=== PATIENT | male | born 1975 | race Caucasian/White ===

== ENCOUNTER → 2019-02-09 | Outpatient (CLI) | payer BC, SELFPAY ==
--- NOTE | 2019-02-09 15:26 | RAD_ITS ---
STUDY: X-RAY - RIGHT KNEE REASON FOR EXAM: Male, 43 years old. Worsening pain TECHNIQUE: 4 view(s) of the knee. COMPARISON: None. FINDINGS: Normal visualized distal femur. Normal visualized proximal tibia and fibula. Normal proximal tibiofibular articulation. Normal medial femorotibial compartment. Normal lateral femorotibial compartment. Normal patellofemoral articulation. The soft tissue structures are unremarkable. RAD/Knee 4 or More Views IMPRESSION: Normal x-ray examination of the knee. Electronically Signed: Gee Rivera MD at 15:40 EDT , Service support ,
[2019-02-09 17:39] LABS: Anion Gap 5 (5-15); BUN 15 mg/dL (7-18); BUN/Creat Ratio 15.8 RATIO (10-20); Calcium,Total 9.2 mg/dL (8.5-10.1); Chloride 105 mmol/L (98-107); Cholesterol 142 mg/dL (200); Creatinine, Serum 0.95 mg/dL (0.70-1.30); EST Glomerular Filtration Rate 92 mL/min (>60); Est Glom Filt Rate - Afr Amer 111 mL/min (>60); Glucose 79 mg/dL (74-106); High Density Lipoprotein 52 mg/dL; Potassium 3.2 mmol/L (3.5-5.1); Sodium Level 141 mmol/L (136-145); Triglycerides 143 mg/dL; Very Low Density Lipoprotein 29 mg/dL (5-40)
== END | disposition home or self-care (01) ==
PROVIDERS: Family Provider Family Medicine; PCP Family Medicine; Referring Provider Family Medicine; Visit Provider Family Medicine
DX: Z00.00 Encounter for general adult medical examination without abnormal findings (principal); M25.561 Pain in right knee
CPT/HCPCS: 36415; 73564; 80048; 80061

== ENCOUNTER → 2019-03-17 | Outpatient (CLI) | payer BC, SELFPAY ==
[2019-03-17 15:38] LABS: Anion Gap 9 (5-15); BUN 19 mg/dL (7-18); BUN/Creat Ratio 20.1 RATIO (10-20); Calcium,Total 9.2 mg/dL (8.5-10.1); Chloride 107 mmol/L (98-107); Creatinine, Serum 0.94 mg/dL (0.70-1.30); EST Glomerular Filtration Rate 93 mL/min (>60); Est Glom Filt Rate - Afr Amer 112 mL/min (>60); Glucose 88 mg/dL (74-106); Potassium 3.7 mmol/L (3.5-5.1); Sodium Level 145 mmol/L (136-145)
== END | disposition home or self-care (01) ==
LOC: MTLAB 14:19
PROVIDERS: Family Provider Family Medicine; PCP Family Medicine; Referring Provider Family Medicine; Visit Provider Family Medicine
DX: E87.6 Hypokalemia (principal)
CPT/HCPCS: 36415; 80048

== ENCOUNTER → 2019-11-29 15:30 | Outpatient (CLI) | payer BC, SELFPAY ==
--- NOTE | 2019-11-29 | IMM_PTH ---
PATIENT: SPENSER MONTANEZ LOC: [facility] U#:[id number] AGE/SX: 49/M ROOM: RE11/29/[address]: Dr. Renato Acosta MD : 1975 BED: DIS: SPEC #: [id number] RECD: 12/01/19 11:43 STATUS: SOURosa REQ #: [id number] NANCI: 11/29/19 00:[address]: Renato Acosta DEPT: IMMUNOHISTOCHEMISTRY RECD BY: Benita White ENTERED: 12/01/19 11:45 SP TYPE: IMMUNO OTHR DR: Dr. Herbert Cooper MD Tissues: Mouth, NOS Procedures: CK14 (add) CK5-6 (add) CK7 (add) CK8 (add) ALANIS-2 (add) P16 (add) 34BE12 (add) Pankeratin (initial) MELAN-A (initial) P40 (add) S-100 (add) PHYSICIAN [facility] INSTITUTION [address] [address] SPECIMEN INFORMATION: Tissue Source: Floor of mouth Clinical Info: Floor of mouth neoplasm Specimen Number: [id number] CPT code: 71777, 58018 x9 METHODOLOGY: Deparaffinized sections of prefer/formalin-fixed tissue or PAP/DQ stained slides are incubated with monoclonal/polyclonal antibodies/oligonucleotide probes. Localization is made via biotin free immunoperoxidase method. Appropriate controls are performed and reacted as expected. Results on target cell population are indicated in the following table: RESULTS: ANTIBODY / CLONE RESULT AE1-3 (AE1/AE3/PCK26) positive CK7 (OV-TL12/30) positive, focal CK8 (38lpecX60) negative ALANIS-2 (SP21) positive, dim 34BE12 (34BE12) positive Melan A (A103) negative S-100 (4C4.9) negative CK5-6 (D5 & 1684) positive CK14 (LL002) positive P40 (BC28) positive P16 (E6H4) negative These tests were developed and their performance characteristics determined by [facility]. They may not have been cleared or approved by the [place]. Food and Drug Administration. The FDA has determined that such clearance or approval is not necessary. The above immunohistochemical/dualISH markers are ordered and reviewed by the Pathologist. INTERPRETATION: Floor of mouth lesion, biopsy: Invasive squamous cell carcinoma. AM:sophie 12/02/19 Case has been reviewed in consultation with Dr. Mitchell who concurs with the above diagnosis. IDC:SJ
--- NOTE | 2019-11-29 | TISS_PTH ---
PATIENT: SPENSER MONTANEZ LOC: [facility] U#:[id number] AGE/SX: 49/M ROOM: RE11/29/[address]: Dr. Renato Acosta MD : 1975 BED: DIS: SPEC #: [id number] RECD: 11/29/19 15:28 STATUS: AYESHA NISHA #: [id number] NANCI: 11/29/19 00:[address]: Renato Acosta DEPT: SURGICAL PATHOLOGY RECD BY: Gibson Arriaga ENTERED: 11/30/19 08:18 SP TYPE: Tissue Bx MICHELLE DR: Dr. Herbert Cooper MD Tissues: Mouth, NOS Procedures: Surgery Specimen Level IV HEADER OPERATION: Not noted PRE-OP DIAGNOSIS: Floor of mouth neoplasm TISSUE SUBMITTED: Floor of mouth neoplasm MICROSCOPIC DIAGNOSIS Floor of mouth lesion, biopsy: Invasive squamous cell carcinoma. AM:sophie 12/01/19 COMMENT Immunohistochemistry ([id number]) supports the above diagnosis. Case has been reviewed in consultation with Dr. Mitchell who concurs with the above diagnosis. IDC:[place] MICROSCOPIC DESCRIPTION Slides are reviewed. GROSS DESCRIPTION Received is one container labeled with the patient's name and not further designated. The specimen consists of a piece of aguiar mucosal tissue measuring 0.3 x 0.1 x 0.1 cm. The specimen is totally submitted in one cassette. / [place]:sophie 11/30/19 TC:0 CPT: 65132
== END ==
PROVIDERS: PCP Family Medicine; Referring Provider Otolaryngology; Visit Provider Otolaryngology
DX: D49.0 Neoplasm of unspecified behavior of digestive system (principal)
CPT/HCPCS: 88305; 88341; 88342

== ENCOUNTER 2021-12-09 18:36 | Emergency (ER) | payer BC, SELFPAY ==
[2021-12-09 18:37] VITALS: BP 131/88; PULSE 91; RESP 14; TEMP 36.2; O2SAT 100; BMI 19.8
[2021-12-09] MEDS: 0.9% Normal Saline 1,000 ML 999 ML IV ×2 (20:42→22:15)
[2021-12-09 20:56] LABS: Absolute Lymphocyte Count 1.26 X10^3/uL (0.83-4.51); Absolute Neutrophil Count 7.3 X10^3/uL (2.0-7.7); Basophil# 0.05 X10^3/uL; Basophil% 0.5 % (0-1); Eosinophil# 0.39 X10^3/uL; Eosinophils% 4.1 % (0-5); Hematocrit 28.6 % (40-54); Hemoglobin 8.8 g/dL (13.0-16.5); Lymphocyte # 1.26 X10^3/ul (0.83-4.51); Lymphocyte % 13.1 % (19-41); Mean Corp Hgb Conc 30.8 g/dL (32-36); Mean Corpuscular Hgb 25.1 pg (27.0-32.0); Mean Corpuscular Volume 81.5 fL (80-94); Mean Platelet Vol. 8.5 fl (6.2-12.0); Monocyte# 0.58 X10^3/uL; NRBC Flagged by Analyzer 0 % (0-5); Neutrophil # 7.28 X10^3/uL (2.7-7.7); Neutrophil % 75.9 % (47-70); Platelet Count 443 K/mm3 (150-450); RBC Distribution Width SD 47.8 fl (35.1-43.9); Red Blood Count 3.51 M/mm3 (4.6-6.2); White Blood Count 9.6 K/mm3 (4.4-11.0)
[2021-12-09 21:19] LABS: ALB/GLOB Ratio 0.7 RATIO (0.9-2.4); AST(SGOT) 22 U/L (15-37); Alanine Aminotransfer ALT/SGPT 12 U/L (16-61); Albumin, Serum 2.9 g/dL (3.2-5.0); Alkaline Phosphatase 96 U/L (45-117); Anion Gap 3 (5-15); BUN 30 mg/dL (7-18); BUN/Creat Ratio 19.5 RATIO (10-20); Calcium,Total 12.9 mg/dL (8.5-10.1); Chloride 105 mmol/L (98-107); Creatinine, Serum 1.54 mg/dL (0.70-1.30); EST Glomerular Filtration Rate 52 mL/min (>60); Est Glom Filt Rate - Afr Amer 63 mL/min (>60); Estimated Creatinine Clearance 51.53 ml/min; Globulin 4.1 g/dL (2.2-4.2); Glucose 83 mg/dL (74-106); Potassium 2.9 mmol/L (3.5-5.1); Sodium Level 138 mmol/L (136-145)
--- NOTE | 2021-12-09 22:08 | EDS_ITS ---
HPI History of Present Illness Chief Complaint: Abn Labs Narrative Narrative: 46-year-old male presenting with hypercalcemia. He states this has been a problem. 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 Patient currently being seen by Dr. Gilbert oncology from . Patient had blood work drawn today after getting IV fluids which showed he had calcium of 13. His potassium was also low. Patient has no symptoms. Patient previously on lenvatinib and pembrolizumab. His disease progressed and he was changed to Taxol. Progression weekly with Taxol and on afatinib he has had a palliative consult already. Patient request IV fluids and discharged home. [facility] Medical History Bone cancer Cancer Hypothyroid Metastatic bone cancer Allergy/AdvReac Type Severity Reaction Status Date / Time No Known Allergies Allergy Verified 12/09/21 18:37 Social History Smoking Status: Never smoker ROS ROS ED Constitutional Constitutional ED: Denies chills or fever(s) Eyes Eyes: Denies blurry vision or diplopia ENT ENT ED: Denies rhinorrhea or sore throat Cardiovascular Cardiovascular: Denies chest pain or palpitations Respiratory/Chest Respiratory/Chest: Denies cough or dyspnea Gastrointestinal Gastrointestinal: Denies abdominal pain, nausea or vomiting Genitourinary Genitourinary ED: Denies dysuria or hematuria Integumentary Denies rash Neurologic Neurologic: Denies headache(s) or weakness EXAM Physical Exam Const Vital Signs: 12/09/21 18:37 12/09/21 19:09 Temperature 97.2 F L Temperature Source Temporal Pulse Rate 91 Respiratory Rate 14 Respiratory Effort Normal Respiratory Pattern Normal Blood Pressure 131/88 H Blood Pressure Mean 102 Pulse Ox 100 Oxygen Delivery Method Room Air Positive well nourished General Appearance ED: NAD; Negative for pallor HEENT Reports moist mucous membranes Negative for trauma Eyes PERRL and EOMs intact bilaterally Resp normal respiratory effort and clear to auscultation bilaterally Cardio regular rate and regular rhythm Extremity normal to inspection General Extremety ED: Negative for tenderness Neuro oriented x3 and CN's II-XII intact bilaterally Sensorium / Orientation: alert Motor Exam: strength 5/5 throughout Psych mental status grossly normal Skin General Skin Exam: Negative for jaundice or pallor MDM MDM MDM Narrative Medical decision making narrative: Terrence lab work to ensure this was accurate. His hemoglobin is 8.8 which is baseline. He was 9.139 2021. Platelets normal at 443. Creatinine slightly elevated at 1.52 this is also near his baseline. Potassium is low at 2.9 he was given 40 mEq p.o. potassium. This is a chronic issue for him. Calcium is high at 12.9. Patient given 2 L of IV fluids per her request. I did ask why they are not started anything to reduce the calcium with bisphosphonates and they stated that they believed that there was prior authorization issues. 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 Patient discharged stable condition. Impression: 1. Hypercalcemia 2. Hypokalemia Lab Data Labs: Laboratory Results - last 24 hr 12/09/21 12/09/21 20:40 20:40 WBC 9.6 RBC 3.51 L Hgb 8.8 L Hct 28.6 L MCV 81.5 MCH 25.1 L MCHC 30.8 L RDW Std Deviation 47.8 H RDW Coeff of Manjit 16.0 H Plt Count 443 MPV 8.5 Immature Gran % (Auto) 0.400 Neut % (Auto) 75.9 H Lymph % (Auto) 13.1 L [place] % (Auto) 6.0 Eos % (Auto) 4.1 Baso % (Auto) 0.5 Absolute Neuts (auto) 7.3 Absolute Lymphs (auto) 1.26 Nucleated RBC % 0 Sodium 138 Potassium 2.9 L Chloride 105 Carbon Dioxide 30.0 Anion Gap 3 L BUN 30 H Creatinine 1.54 H Estim Creat Clear Calc 51.53 Est GFR (MDRD) Af Amer 63 Est GFR (MDRD) Non-Af 52 L BUN/Creatinine Ratio 19.5 Glucose 83 Calcium 12.9 H* Total Bilirubin 0.60 AST 22 ALT 12 L Alkaline Phosphatase 96 Total Protein 7.0 Albumin 2.9 L Globulin 4.1 Albumin/Globulin Ratio 0.7 L Discharge Plan Triage Chief Complaint: Abn Labs ED Provider: Kareem Naqvi Dx/Rx/DC Orders Primary Care Provider: Herbert Cooper
[2021-12-09 22:34] VITALS: RESP 18
--- NOTE | 2021-12-09 22:48 | ED.RN ---
patients port flushed with 10 units of heparin and 10 mL NS
== END 2021-12-09 22:53 | disposition home or self-care (01) ==
PROVIDERS: Emergency Provider Student in an Organized Health Care Education/Training Program; PCP Family Medicine; Visit Provider Student in an Organized Health Care Education/Training Program
DX: E87.6 Hypokalemia (principal); C79.51 Secondary malignant neoplasm of bone; E83.52 Hypercalcemia; E03.9 Hypothyroidism, unspecified; Z85.9 Personal history of malignant neoplasm, unspecified
CPT/HCPCS: 80053; 85025; 96360; 96361; 99282; J7030; A4216